=== PATIENT | female | born 2005 | race Caucasian/White ===

== ENCOUNTER 2025-04-21 22:14 | Emergency (ER) | payer OTHER ==
[~2025-04-21] VITALS: Ht 162.5 cm; Wt 80.7 kg
[2025-04-22 00:13] LABS: BASO # 0.0 10*3/uL (0.0-0.1); BASO % 0.3 % (0.0-1.0); EOS # 0.0 10*3/uL (0.0-0.4); EOS % 0.2 % (1.0-4.0); MEAN CELL VOLUME 78.3 fl (81.0-99.0); MEAN CORPUSCULAR HGB 24.9 pg (27.0-31.0); MEAN PLATELET VOLUME 10.0 fl (9.6-12.3); MONO # 1.0 10*3/uL (0.1-1.0); MONO % 7.9 % (3.0-9.0); NEUT # 9.5 10*3/uL (2.3-7.9); NEUT % 74.0 % (47.0-73.0); NUCLEATED RED BLOOD CELL 0.0 % (0.0-0.0); NUCLEATED RED BLOOD CELL 0.0 10*3/uL (0.0-0.0); PLATELET COUNT AUTOMATED 326 10*3/uL (130-400); RED CELL DISTRI WIDTH 12.5 % (0-14.5)
[2025-04-22 00:33] LABS: BILIRUBIN Negative (Negative); BLOOD Negative (Negative); CLARITY Clear (Clear); COLOR Yellow (Yellow); KETONE 4+ (Negative); LEUKO ESTERASE 1+ (Negative); NITRITE Negative (Negative); PH 5.5 (4.5-8.0); SPECIFIC GRAVITY 1.015 (1.001-1.030); UROBILINOGEN 0.2 E.U./dl (0.0-1.0)
[2025-04-22 00:36] LABS: URINE AMPHETAMINES Negative (1000ng/ml); URINE BARBITURATES Negative (200ng/ml); URINE BENZODIAZEPINES Negative (200ng/ml); URINE CANNABINOIDS (THC) Negative (50ng/ml); URINE COCAINE Negative (300ng/ml); URINE METHADONE Negative (300ng/ml); URINE OPIATES Negative (300ng/ml); URINE PHENCYCLIDINE Negative (25ng/ml)
[2025-04-22 00:37] LABS: BUN 5 mg/dl (9-23)
[2025-04-22 01:12] LABS: EPITHELIAL CELLS 16-20
[2025-04-22 01:13] LABS: BACTERIA TRACE
[2025-04-22] MEDS ORDERED: MACROBID100 M1 PO (05:10)
[2025-04-22] MEDS ORDERED: [UNRECOGNIZED DRUG - OTHER] PO (05:13)
== END 2025-04-22 05:16 | disposition home or self-care (01) ==
LOC: ED 22:14 → EDBD 22:21 → ED 22:21
PROVIDERS: Student in an Organized Health Care Education/Training Program
DX: N39.0 Urinary tract infection, site not specified (principal); I10 Essential (primary) hypertension; E11.9 Type 2 diabetes mellitus without complications; Z88.8 Allergy status to other drugs, medicaments and biological substances; Z79.899 Other long term (current) drug therapy